=== PATIENT | male | born 1970 | race Caucasian/White ===

== ENCOUNTER 2017-03-05 00:08 | Observation (INO) | payer OTHER ==
[~2017-03-05] VITALS: Ht 180.3 cm; Wt 112.3 kg
[~2017-03-05 00:08] MED LIST: ASPIR-MOX 325325 MG PO; DULERA 200 MCG/13 GM IH; LOPRESSOR25 MG PO; METFORMIN HCL500 MG PO; NORCO 5/3251 TABLET PO; SIMVASTATIN40 MG PO; SINGULAIR10 MG PO; TOPROL XL50 MG PO; WELLBUTRIN SR150 MG PO
[2017-03-05 00:41] LABS: HEMATOCRIT 40.9 % (38.0-50.0); MCH 33.7 PG (29.0-34.0); MCHC 35.9 G/DL (30.0-36.0); MCV 93.8 FL (86-99); MEAN PLAT.VOLUME 10.1 uM^3 (9.0-12.4); PLATELET COUNT 204 K/uL (156-360); RBC DIS.WIDTH-CV 12.1 % (11.8-14.6); RBC DIS.WIDTH-SD 42.2 % (39-53); RED BLOOD COUNT 4.36 M/uL (4.00-5.50)
[2017-03-05 00:49] LABS: CHLORIDE 99 mEq/L (99-109); POTASSIUM 4.2 mEq/L (3.7-5.4); SODIUM 132 mEq/L (136-147)
[2017-03-05 00:50] LABS: GLUCOSE 226 mg/dL (70-99)
[2017-03-05 00:52] LABS: ANION GAP 10 MEQ/L (2-14)
[2017-03-05 00:54] LABS: GFR ESTIMATE (CALCULATED) > 59 mL/min/
[2017-03-05 00:55] LABS: UREA NITROGEN (BUN) 8 mg/dL (9-23)
[2017-03-05 01:03] LABS: TROP-I INTERPRETATION NEGATIVE; TROPONIN-I < 0.01 ng/mL (0.0-0.30)
[2017-03-05] MEDS ORDERED: OXYCODONE HCL20 M1 PO (03:07)
[2017-03-05] MEDS ORDERED: OXYCONTIN20 MG PO (03:07)
[2017-03-05] MEDS ORDERED: METFORMIN HCL500 MG PO (03:07)
[2017-03-05] MEDS ORDERED: LISINOPRIL20 MG PO (03:07)
[2017-03-05 03:47] VITALS: BP 150/9; BP 150/90
[2017-03-05 06:59] LABS: TROP-I INTERPRETATION NEGATIVE; TROPONIN-I 0.04 ng/mL (0.0-0.30)
[2017-03-05 07:08] LABS: Estimated Average Glucose 226 mg/dL (70-123); HEMOGLOBIN A1c (GLYCOHEMOGLOB) 9.5 % HGB (Below 5.7)
[2017-03-05 07:10] LABS: HDL CHOLESTEROL 28 MG/DL (Desirable>=40); LDL CHOLESTEROL 85 mg/dL (Desirable<100); NON-HDL CHOLESTEROL 130 mg/dL (Desirable<160); TOTAL CHOLESTEROL 158 mg/dL (Desirable<200); TRIGLYCERIDES 223 MG/DL (Normal: <150)
[2017-03-05 07:28] VITALS: BP 137/81
[2017-03-05 08:57] LABS: POINT-OF-CARE METER ID UU13113700
[2017-03-05 13:06] VITALS: BP 133/65
[2017-03-05 13:12] VITALS: BP 133/65
[2017-03-05 13:16] VITALS: BP 133/65
[2017-03-05 13:23] LABS: TROP-I INTERPRETATION NEGATIVE; TROPONIN-I 0.29 ng/mL (0.0-0.30)
[2017-03-05 14:14] LABS: POINT-OF-CARE METER ID UU14162513
[2017-03-05 16:07] VITALS: BP 132/77
[2017-03-05 17:32] LABS: POINT-OF-CARE METER ID UU13113700
[2017-03-06] MEDS ORDERED: CLARITIN,ALAVAR10 MG PO (16:59)
[2017-03-06] MEDS ORDERED: MOTRIN800 MG PO (17:00)
[2017-03-06] MEDS ORDERED: LITE COAT ASPI325 M1 PO (17:00)
[2017-03-06] MEDS ORDERED: ADVIL COLD &1 TABLET PO (17:00)
== END 2017-03-05 19:45 | disposition left against medical advice (07) ==
LOC: EME 00:08 → EDOF 02:30 → ENRESERV 02:31 → 5WEST 03:31
PROVIDERS: Hospitalist; Physician Assistant Medical
DX: R07.9 Chest pain, unspecified (principal); E87.1 Hypo-osmolality and hyponatremia; E11.65 Type 2 diabetes mellitus with hyperglycemia; F17.200 Nicotine dependence, unspecified, uncomplicated; E78.5 Hyperlipidemia, unspecified; I10 Essential (primary) hypertension; I27.20 Pulmonary hypertension, unspecified; G89.29 Other chronic pain; M54.5 Low back pain; E66.9 Obesity, unspecified; Z68.34 Body mass index [BMI] 34.0-34.9, adult; Z79.891 Long term (current) use of opiate analgesic; Z87.19 Personal history of other diseases of the digestive system; Z82.49 Family history of ischemic heart disease and other diseases of the circulatory system; Z83.3 Family history of diabetes mellitus; Z80.42 Family history of malignant neoplasm of prostate; Z79.84 Long term (current) use of oral hypoglycemic drugs
CPT/HCPCS: 71020; 71275; 80048; 80061; 82948; 83036; 84484; 85027; 85379; 93005; 93306; 99281; 99285; G0378; J1650; J7030

== ENCOUNTER 2017-03-06 13:59 | Inpatient (IN) | payer OTHER ==
[~2017-03-06] VITALS: Ht 180.3 cm; Wt 107.5 kg
[~2017-03-06 13:59] MED LIST changes: +LISINOPRIL20 MG PO; +OXYCODONE HCL20 M1 PO; +OXYCONTIN20 MG PO
[2017-03-06 14:50] LABS: HEMATOCRIT 39.3 % (38.0-50.0); MCH 33.9 PG (29.0-34.0); MCHC 36.6 G/DL (30.0-36.0); MCV 92.5 FL (86-99); MEAN PLAT.VOLUME 10.1 uM^3 (9.0-12.4); PLATELET COUNT 180 K/uL (156-360); RBC DIS.WIDTH-CV 11.9 % (11.8-14.6); RED BLOOD COUNT 4.25 M/uL (4.00-5.50)
[2017-03-06 15:02] LABS: CHLORIDE 100 mEq/L (99-109); POTASSIUM 3.9 mEq/L (3.7-5.4); SODIUM 134 mEq/L (136-147)
[2017-03-06 15:04] LABS: GLUCOSE 203 mg/dL (70-99)
[2017-03-06 15:05] LABS: ANION GAP 12 MEQ/L (2-14)
[2017-03-06 15:08] LABS: GFR ESTIMATE (CALCULATED) > 59 mL/min/
[2017-03-06 15:09] LABS: UREA NITROGEN (BUN) 8 mg/dL (9-23)
[2017-03-06 15:20] LABS: TROP-I INTERPRETATION NEGATIVE; TROPONIN-I 0.06 ng/mL (0.0-0.30)
[2017-03-06] MEDS ORDERED: CLARITIN,ALAVAR10 MG PO (16:59)
[2017-03-06] MEDS ORDERED: LITE COAT ASPI325 M1 PO (17:00)
[2017-03-06] MEDS ORDERED: MOTRIN800 MG PO (17:00)
[2017-03-06] MEDS ORDERED: ADVIL COLD &1 TABLET PO (17:00)
[2017-03-06 17:42] LABS: POINT-OF-CARE METER ID UU13113702
[2017-03-06 19:45] VITALS: BP 142/88
[2017-03-06 20:01] LABS: TROP-I INTERPRETATION NEGATIVE; TROPONIN-I 0.18 ng/mL (0.0-0.30)
[2017-03-06 23:45] LABS: POINT-OF-CARE METER ID UU13113698
[2017-03-07 04:30] VITALS: BP 130/77
[2017-03-07 06:09] LABS: HEMATOCRIT 39.1 % (38.0-50.0); MCH 32.9 PG (29.0-34.0); MCHC 35.3 G/DL (30.0-36.0); MCV 93.3 FL (86-99); MEAN PLAT.VOLUME 10.1 uM^3 (9.0-12.4); PLATELET COUNT 189 K/uL (156-360); RBC DIS.WIDTH-CV 11.9 % (11.8-14.6); RBC DIS.WIDTH-SD 40.9 % (39-53); RED BLOOD COUNT 4.19 M/uL (4.00-5.50); WHITE BLOOD COUNT 7.4 K/uL (4.1-10.2)
[2017-03-07 06:14] LABS: PROTHROMBIN TIME 11.6 SEC (10.2-12.9)
[2017-03-07 06:17] LABS: PTT 26.6 SEC (25-37)
[2017-03-07 06:26] LABS: TROP-I INTERPRETATION POSITIVE; TROPONIN-I 0.96 ng/mL (0.0-0.30)
[2017-03-07 06:34] LABS: ANION GAP 7 MEQ/L (2-14); CHLORIDE 97 MEQ/L (99-109); GFR ESTIMATE (CALCULATED) > 59 mL/min/; GLUCOSE 207 mg/dL (70-99); POTASSIUM 4.3 MEQ/L (3.7-5.4); SAMPLE HEMOLYSIS CHECK 0; SAMPLE ICTERIC CHECK 0; SAMPLE LIPEMIA CHECK 0; SODIUM 135 MEQ/L (136-147); UREA NITROGEN (BUN) 9 mg/dL (9-23)
[2017-03-07 08:25] LABS: POINT-OF-CARE METER ID UU13113781
[2017-03-07 11:51] LABS: POINT-OF-CARE METER ID UU14174216
[2017-03-07 17:15] VITALS: BP 128/86
[2017-03-07] MEDS ORDERED: CLOPIDOGREL75 MG PO (17:19)
[2017-03-07] MEDS ORDERED: LOPRESSOR25 MG PO (17:19)
[2017-03-07] MEDS ORDERED: NITROSTAT0.4 MG SL (17:19)
[2017-03-07] MEDS ORDERED: METFORMIN HCL500 MG PO (17:19)
[2017-03-07] MEDS ORDERED: ATORVASTATIN CA40 MG PO (17:19)
[2017-03-07 17:29] LABS: POINT-OF-CARE METER ID UU14314088
[2017-03-07] MEDS ORDERED: NITROPASTE 2%1 GM TP (17:45)
== END 2017-03-07 18:35 | disposition home or self-care (01) | DRG 282 ==
LOC: EME 13:59 → EDOF 16:22 → 4EAST 16:22 → ENRESERV 16:35 → 4EAST 19:41
PROVIDERS: Emergency Medicine; Internal Medicine
DX: I21.4 Non-ST elevation (NSTEMI) myocardial infarction (principal); I27.20 Pulmonary hypertension, unspecified; I10 Essential (primary) hypertension; J84.10 Pulmonary fibrosis, unspecified; F17.210 Nicotine dependence, cigarettes, uncomplicated; G89.4 Chronic pain syndrome; I34.0 Nonrheumatic mitral (valve) insufficiency; E11.9 Type 2 diabetes mellitus without complications; E78.5 Hyperlipidemia, unspecified; Z91.19 Patient's noncompliance with other medical treatment and regimen; E66.9 Obesity, unspecified; Z68.32 Body mass index [BMI] 32.0-32.9, adult
CPT/HCPCS: 71020; 71275; 80048; 80061; 82948; 83036; 84484; 85027; 85347; 85379; 85610; 85730; 93005; 93306; 99281; 99285; C1769; C1887; G0378; J1644; J1650; J1815; J2250; J2270; J3010; J7030; J7040